=== PATIENT | male | born 1995 | race Caucasian/White ===

== ENCOUNTER 2023-04-03 21:20 | Emergency (ER) | payer OTHER, SELFPAY ==
--- NOTE | ~2023-04-03 | US_ITS ---
Testicular ultrasound with doppler. Indication: Testicular pain. Technique: Real-time sonography the scrotum was performed. Color flow Doppler and Doppler spectral an alysis were performed. Findings: The testes are homogeneous in echotexture bilaterally. There is no evidence of an intrates ticular mass. The right testis measures 4.5 x 2.2 x 2.8 cm and the left 4.7 x 1.8 x 2.8 cm. There is color-flow seen to both testes. Arterial and venous spectral waveforms are seen in both testes. There is no sonographic evidence of torsion. The head of the epididymis is visualized bilaterally and is within normal limits. Impression: Unremarkable exam. No evidence of torsion. Reviewed, dictated and finalized at location M. Impression: Unremarkable exam. No evidence of torsion.
[2023-04-03 21:22] VITALS: BP 158/106; PULSE 85; RESP 15; TEMP 36.6; O2SAT 100
--- NOTE | 2023-04-03 21:52 | PC.NURSE ---
Patient refused blood draw due to financial reasons. EDP Dr. Pichardo notified.
[2023-04-03 21:53] LABS: Appearance Urine Clear (Clear); Bilirubin Urine Negative (Negative); Blood Urine Negative (Negative); Color Urine Yellow (Yellow); Glucose Urine UA Negative (Negative); Ketones Urine 1+ mg/dL (Negative); Leukocyte Esterase Ur Negative LEU/UL (Negative); Nitrate Urine Negative (Negative); Protein Urine Negative (Negative); Specific Grav Ur 1.023 (1.001-1.035)
[2023-04-03 21:57] LABS: Add Urine Microscopic? NO
--- NOTE | 2023-04-03 22:07 | ED.GENADULT ---
HPI - General Adult General Chief complaint: Urogenital-Male Stated complaint: urogenital Time Seen by Provider: 04/03/23 21:25 History of Present Illness HPI narrative: Patient history 7-year-old gentleman presents emergency room with chief complaint of. Patient reports for the last 2 days as a aching sensation in both discussed. Patient reports no swelling no redness no crepitus denies dysuria denies discharge patient reports no trauma reports he also had some decreased glucose well. Related Data Allergies Allergy/AdvReac Type Severity Reaction Status Date / Time No Known Allergies Allergy Verified 04/03/23 21:26 Review of Systems Review of Systems: A 10 system review of systems was completed on the patient and is negative except for what is stated in the HPI. Nursing and ancillary documentation was reviewed. Exam Narrative: GENERAL: Well-appearing, well-nourished, and in no acute distress. HEAD: Normocephalic, atraumatic. EYES: PERRLA and EOMI. ENT: Nares clear, no rhinorrhea or epistaxis. Mucous membranes moist. NECK: Supple. CHEST: Clear to auscultation. No respiratory distress. HEART: Regular rate and rhythm. No murmur heard. Normal peripheral pulses. ABDOMEN: Soft, nontender, nondistended, normal active bowel sounds. : No redness or swelling minimal tenderness present to bilateral testicles EXTREMITIES: Normal range of motion. No edema. SKIN: Warm, dry, no rash. NEURO: No focal deficits. Alert and oriented x3. PSYCH: Normal mood and affect. Course Vital Signs Vital signs: Vital Signs Temperature 36.6 C 04/03/23 21:22 Pulse Rate 85 04/03/23 21:22 Respiratory Rate 15 04/03/23 21:22 Blood Pressure 158/106 H 04/03/23 21:22 Pulse Oximetry 100 04/03/23 21:22 Oxygen Delivery Room Air 04/03/23 21:22 Temperature 36.6 C 04/03/23 21:22 Pulse Rate 85 04/03/23 21:22 Respiratory Rate 15 04/03/23 21:22 Blood Pressure 158/106 H 04/03/23 21:22 Pulse Oximetry 100 04/03/23 21:22 Oxygen Delivery Room Air 04/03/23 21:22 Medical Decision Making [facility] Narrative Medical decision making narrative: Differential diagnosis: Testicular torsion, epididymitis, orchitis, varicocele hydrocele hernia The patient was very reluctant to do any significant testing and ultimately did decide to have the ultrasound performed and a urinalysis performed. Ultrasound showed evidence of bilateral varicoceles without evidence of torsion Urinalysis showed no evidence of UTI Vital Signs Vital Signs: Vital Signs Temperature 36.6 C 04/03/23 21:22 Pulse Rate 85 04/03/23 21:22 Respiratory Rate 15 04/03/23 21:22 Blood Pressure 158/106 H 04/03/23 21:22 Pulse Oximetry 100 04/03/23 21:22 Oxygen Delivery Room Air 04/03/23 21:22 Temperature 36.6 C 04/03/23 21:22 Pulse Rate 85 04/03/23 21:22 Respiratory Rate 15 04/03/23 21:22 Blood Pressure 158/106 H 04/03/23 21:22 Pulse Oximetry 100 04/03/23 21:22 Oxygen Delivery Room Air 04/03/23 21:22 Lab Data Labs: Lab Results 04/03/23 Range/Units 21:46 Urine Color Yellow (Yellow) Urine Appearance Clear (Clear) Urine pH 6.0 (5.0-9.0) Ur Specific [place] 1.023 (1.001-1.035) Urine Protein Negative (Negative) mg/dL Urine Glucose (UA) Negative (Negative) mg/dL Urine Ketones 1+ H (Negative) mg/dL Ur Blood (Man) Negative (Negative) Urine Nitrate Negative (Negative) Urine Bilirubin Negative (Negative) Urine Urobilinogen 1.0 (<2.0) mg/dL Leukocyte Esterase Rfl Negative (Negative) AMY/UL C.trachomatis RNA (TMA) Pending N.gonorrhoeae RNA (TMA) Pending Urine Characteristics Clear Discharge Plan Discharge Clinical Impression: Bilateral varicoceles, Acute pain in scrotum Patient Disposition: Home, Self-Care Condition: Stable Instructions: Antibiotic Form, Varicocele (ED),
[2023-04-03 23:19] VITALS: BP 160/95; PULSE 71; RESP 16; O2SAT 97
== END 2023-04-03 23:26 | disposition home or self-care (01) ==
PROVIDERS: Emergency Provider Emergency Medicine
DX: I86.1 Scrotal varices (principal); N50.82 Scrotal pain
CPT/HCPCS: 76870; 81003; 87491; 87591; 93976; 99284